=== PATIENT | female | born 2000 | race Caucasian/White ===

== ENCOUNTER 2021-07-31 13:54 | Emergency (ER) | payer BC, MEDICAID, SELFPAY ==
--- NOTE | ~2021-07-31 | XR_ITS ---
EXAMINATION: XR chest 1V portable DATE: 07/31/2021 15:47 INDICATION: Weakness. TECHNIQUE: A single frontal view of the chest was obtained. COMPARISON: None. FINDINGS: The chest demonstrates clear lungs without pneumonia, pleural effusion, or pneumothorax. Th e heart size is normal. IMPRESSION: 1. No acute cardiopulmonary disease. Reviewed, dictated and finalized at location A.
[2021-07-31 14:03] VITALS: BP 115/58; PULSE 82; RESP 18; TEMP 36.6; O2SAT 100
[2021-07-31 14:25] VITALS: BP 115/65; PULSE 78; RESP 18; O2SAT 100
--- NOTE | 2021-07-31 15:35 | ECG_ITS ---
Measurements Intervals [place] Rate: 68 P: 72 WY: 177 QRS: 86 QRSD: 94 T: 64 QT: 391 QTc: 418 Interpretive Statements SINUS RHYTHM INCOMPLETE RIGHT BUNDLE BRANCH BLOCK BORDERLINE ECG Electronically Signed On 07-31-2021 16:06:07 CDT by Davonte Ferrara D.O.
[2021-07-31 16:27] LABS: Basophils Percent Auto 0.4 % (0.2-1.2); Eosinophils Absolute Auto 0.1 K/mm3 (0-0.3); Eosinophils Percent Auto 1.3 % (0-4.4); Hemoglobin 11.5 g/dL (12.0-15.0); Immature Granulocyte Absolute 0.01 K/mm3 (0.00-0.031); Immature Granulocyte Percent A 0.2 % (0-0.5); Lymphocytes Percent Auto 35.4 % (18.3-44.2); Mean Corpuscular HGB Conc 32.9 g/dl (32-36); Mean Corpuscular Hemoglobin 27.1 pg (26-34); Mean Corpuscular Volume 82.5 fl (80-100); Mean Platelet Volume 10.3 fl (7.4-10.4); Monocytes Absolute Auto 0.5 K/mm3 (0.1-0.6); Monocytes Percent Auto 8.4 % (2.6-8.5); Neutrophils Absolute Auto 2.9 K/mm3 (1.3-6.7); Neutrophils Percent Auto 54.3 % (45.5-73.1); Platelet Count Result 346 k/mm3 (150-375); Red Blood Count 4.24 M/mm3 (4.2-5.4); Red Cell Distribution Width 13.9 % (11.5-14.5); White Blood Count 5.4 K/mm3 (4.5-10.0)
[2021-07-31 16:29] LABS: Add Urine Microscopic? YES; Appearance Urine Clear (Clear); Bilirubin Urine Negative (Negative); Blood Urine Negative (Negative); Color Urine Yellow (Yellow); Glucose Urine UA Negative (Negative); Ketones Urine Negative (Negative); Leukocyte Esterase Ur Trace LEU/UL (Negative); Nitrate Urine Negative (Negative); Protein Urine Negative (Negative); Specific Grav Ur 1.015 (1.001-1.035); Urobilinogen Urine 0.2 mg/dL (<2.0); pH Urine 6.5 (5.0-9.0)
[2021-07-31 16:37] LABS: Alanine Aminotransferase 15 U/L (6-35); Albumin Level 4.5 g/dL (3.5-5.1); Alkaline Phosphatase 47 U/L (38-126); Anion Gap 6 mmol/L (8-16); Aspartate Amino Transferase 28 U/L (14-36); Bilirubin,Total 0.3 mg/dL (0.2-1.3); Blood Urea Nitrogen 16 mg/dL (7-17); Calcium 9.3 mg/dL (8.4-10.2); Carbon Dioxide 29 mmol/L (22-30); Chloride 102 mmol/L (98-107); Estimated CRCL calculation 107 ml/min; Estimated Glomerular Filt Rate > 60; Glucose 69 mg/dL (65-110); Magnesium 1.8 mg/dL (1.6-2.3); Potassium 4.1 mmol/L (3.4-5.0); Sodium 137 mmol/L (137-145)
[2021-07-31 16:48] LABS: Bacteria Urine Trace /hpf; Mucus Urine Rare /lpf; RBC Urine 0-2 /hpf (0-2); Squamous Epithelial Cell Urine Many /hpf (Few); WBC Urine 0-3 /hpf
[2021-07-31 16:49] VITALS: BP 105/50; BP 97/60; PULSE 71
[2021-07-31 16:50] VITALS: BP 112/56
--- NOTE | 2021-07-31 16:53 | ED.WEAKNESS ---
HPI - Weakness General Chief complaint: Weakness Stated complaint: low blood pressure Time Seen by Provider: 07/31/21 16:22 Source: patient Mode of arrival: ambulatory History of Present Illness HPI Narrative: 21-year-old female was in physical therapy today when she had a short episode of dizziness. Per patient therapy says her blood pressure was either low or high and instructed her to come to the ER. Patient states she got dizzy when the TENS unit was hooked up to her right leg and blames the dizziness on that. Patient alert and oriented without complaints of dizziness upon arrival. Patient does appear pale and states that yes she is paler than normal. Patient without any other complaints including no shortness of breath, no chest pain. She denies any recent illness, or sick contacts, or decrease in oral intake. Related Data Home Medications Medication Instructions Recorded Confirmed amitriptyline 25 mg tablet 25 mg PO QHS 06/03/21 06/13/21 Allergies Allergy/AdvReac Type Severity Reaction Status Date / Time Penicillins Allergy Intermediate Rash Verified 07/31/21 14:27 Review of Systems Review of Systems: CONSTITUTIONAL: Denies fever, chills, or sweats. EYES: Denies visual changes, redness, or discharge. ENT: Denies rhinorrhea, congestion, sore throat, or otalgia. CARDIOVASCULAR: Denies chest pain, palpitations, or edema. RESPIRATORY: Denies cough or dyspnea. GASTROINTESTINAL: Denies abdominal pain, nausea, vomiting, or diarrhea. GENITOURINARY: Denies dysuria or hematuria. SKIN: Denies rash or itching. MUSCULOSKELETAL: Denies back pain, joint pain, or myalgia. NEUROLOGIC: Dizziness. Denies headache, numbness, or weakness. PSYCHIATRIC: Denies anxiety or depression. COUNTS INCLUDE 234 BEDS AT THE [facility] Past Medical History Medical History Depression Family History Family History Father ADHD Mother Anemia Grandparent ADHD Social History Social History Smoking status: Former smoker Tobacco type: e-cigarettes/vaping Second hand tobacco smoke exposure: Yes Alcohol intake: current Substance use type: marijuana Gender identity (if verbalized by the patient): Female Sexual Orientation (if Verbalized by the Patient): Straight or Heterosexual Spiritual care concerns: No Agree to blood products: Yes Exam Narrative: GENERAL: Well-appearing, well-nourished, and in no acute distress. Patient does appear pale. HEAD: Normocephalic, atraumatic. EYES: PERRLA and EOMI. NECK: Supple. No adenopathy or masses. No carotid bruits or JVD CHEST: Clear to auscultation. No respiratory distress. No wheezes rales or rhonchi HEART: Regular rate and rhythm. No murmur heard. Normal peripheral pulses. ABDOMEN: Soft, nontender, nondistended, normal active bowel sounds. EXTREMITIES: Normal range of motion. No edema. SKIN: Warm, dry, no rash. NEURO: No focal deficits. Alert and oriented x3. PSYCH: Normal mood and affect. Course Course Emergency Course: Discussed labs with patient. Orthostatics negative. Patient ready to be discharged home wants to go home. Vital Signs Vital signs: Vital Signs Temperature 36.6 C 07/31/21 14:03 Pulse Rate 82 07/31/21 14:03 Respiratory Rate 18 07/31/21 14:03 Blood Pressure 115/58 L 07/31/21 14:03 Pulse Oximetry 100 07/31/21 14:03 Temperature 36.6 C 07/31/21 14:03 Pulse Rate 71 07/31/21 16:49 Respiratory Rate 18 07/31/21 14:25 Blood Pressure 112/56 L 07/31/21 16:50 Pulse Oximetry 100 07/31/21 14:25 MDM - Weakness MDM Narrative Medical decision making narrative: 21-year-old female HPI as noted. Patient with a short course of dizziness during PT. Hemoglobin 11.5, WBCs 5.4, sodium 137, potassium 4.1, GFR greater than 60, and orthostatics negative. Patient was on a TENS unit with dizziness started. Susp
== END 2021-07-31 17:33 | disposition home or self-care (01) ==
PROVIDERS: General Practice; Emergency Provider Nurse Practitioner Family
DX: R42 Dizziness and giddiness (principal); F32.A Depression, unspecified; Z87.891 Personal history of nicotine dependence; I45.10 Unspecified right bundle-branch block
CPT/HCPCS: 36415; 71045; 80053; 81001; 81025; 83605; 83735; 85025; 93005; 99283

== ENCOUNTER 2021-08-05 15:45 | Outpatient (RCR) | payer BC, MEDICAID, SELFPAY ==
--- NOTE | 2021-05-27 14:46 | OTOPEVAL ---
OCCUPATIONAL THERAPY INITIAL EVALUATION REPORT 05/27/21 Thank you for referring Brenna Gonsalez to [facility].? The patient is scheduled to be seen for occupational therapy? 2x/week for 4 weeks. Please review, sign, date and return this plan of care JA. I agree with and certify that the following plan of care is medically necessary. Referring Physician Date Referring Provider: Yvan Hall MD *OT Outpatient Evaluation Start: 05/27/21 13:52 Outpatient Past Medical History Neurological History Hx Other Neurological Disorders Yes: Traumatic Brain Injury Cardiovascular History Hx Cardiac Disorders No Significant History Respiratory History Hx Respiratory Disorders No Significant History Gastrointestinal History Hx Gastrointestinal Disorders No Significant History Genitourinary History Hx Genitourinary Disorders No Significant History Musculoskeletal History Hx Musculoskeletal Disorders No Significant History Hematological History Hx Hematological Disorders No Significant History Endocrine History Hx Endocrine Disorders No Significant History HEENT History Hx HEENT Disorders No Significant History Integumentary History Hx Skin Disorders No Significant History Reproductive History Hx Reproductive Disorders No Significant History Psychosocial History Hx Psychiatric Disorders No Significant History Anesthesia History Hx Anesthesia Reactions No Significant History Evaluation Information Problem Diagnosis Traumatic Brain Injury Cause Reports overdose Subjective Information She has a history of drug Query Text:As Reported By Patient/ abuse who overdosed and was Family found unresponsive at her grandmother's house. She was admitted to the hospital in late Mar 2021 where she was intubated and transferred to the ICU. After a complicated hospital stay (~28 days) she was admitted to [facility] in late Apr 2021. She is unsure how long she was there. She discharged back to her grandmother's house and is now referred to outpatient OT/PT/ST. Prior Level of Function Activity Level (Last 3 Months) Hand Dominance Right Activity of Daily Living Ability Needs Some Help Indoor/Home Mobility Needs Some Help Community Mobility Needs Some Help Stairs Ability Needs Some Help Functional Cognition (Planning, Shopping Needs Some Help , Taking Medications) Home Settin
--- NOTE | 2021-05-27 16:25 | STOPEVAL ---
Thank you for referring Brenna Gonsalez to [facility].? The patient is scheduled to be seen for therapy? 0x/week for 1 weeks then 2x/week for 2 weeks. Please review, sign, date and return this plan of care JA. I agree with and certify that the following plan of care is medically necessary. Referring Physician Date Referring Provider: Yvan Hall Therapy Assessment Status Assessment Status Assessment Status Evaluation Outpatient Past Medical History Neurological History Hx Other Neurological Disorders Yes: Traumatic Brain Injury Cardiovascular History Hx Cardiac Disorders No Significant History Respiratory History Hx Respiratory Disorders No Significant History Gastrointestinal History Hx Gastrointestinal Disorders No Significant History Genitourinary History Hx Genitourinary Disorders No Significant History Musculoskeletal History Hx Musculoskeletal Disorders No Significant History Hematological History Hx Hematological Disorders No Significant History Endocrine History Hx Endocrine Disorders No Significant History HEENT History Hx HEENT Disorders No Significant History Integumentary History Hx Skin Disorders No Significant History Reproductive History Hx Reproductive Disorders No Significant History Psychosocial History Hx Psychiatric Disorders No Significant History Anesthesia History Hx Anesthesia Reactions No Significant History Evaluation Information Problem Diagnosis Traumatic Brain Injury Cause Reports overdose Subjective Information Patient reports she overdosed Query Text:As Reported By Patient/ and went into a coma for about Family a month, then, maybe 15 days, maybe 10. Reports she was in [place] and then [facility]. Pain Assessment Timing of Pain Assessment Timing of Pain Assessment Assessment Pain Scale Pain Scale Used Numeric (1 - 10) Pain Score Additional Pain Score Comments Complains of severe pain in her right foot due to nerve damage. 12/21. States nothing helps with the pain. Interventions Used Interventions Used By Clinicians None Pain Relief Interventions Used By None Patient Other Alleviating Interventions Says nothing she does improves the pain in her foot. Cognitive Evaluation Orientation/Memory Assessment Immediate Memory 72 Query Text:% Accuracy Recent Memory 90 Query Text:% Accuracy Remote Memory 80 Query Text:% Accuracy Prospective Memory 100 Query Text:% Accuracy Temporal Orientation
--- NOTE | 2021-05-27 17:00 | PTOPEVAL ---
PHYSICAL THERAPY INITIAL EVALUATION. Thank you for referring Brenna Gonsalez to [facility].? The patient is scheduled to be seen for therapy?2x/week for 4 weeks. Please review, sign, date and return this plan of care JA. I agree with and certify that the following plan of care is medically necessary. Referring Physician Date Attending Provider: PHYSICIAN NOT ON STAFF Referring Provider: Yvan Hall *PT Outpatient Evaluation Start: 05/27/21 Evaluation Information Diagnosis Traumatic Brain Injury Onset 04/10/21 Subjective Information Per chart and patients family, Query Text:As Reported By Patient/ she has a history of drug Family abuse who overdosed and was found unresponsive at her grandmother's house. She was admitted to [facility] where she was intubated and transferred to the ICU. After a complicated hospital stay (~28 days) she was admitted to [facility] on . She is unsure how long she was there. She discharged back to her grandmother's house ~05/20/21 and is now referred to outpatient OT/PT/ ST. Prior Level of Function Activity Level (Last 3 Months) Hand Dominance Right Activity of Daily Living Ability Needs Some Help Indoor/Home Mobility Needs Some Help Community Mobility Needs Some Help Stairs Ability Needs Some Help Functional Cognition (Planning, Shopping Needs Some Help , Taking Medications) Home Setting Home Type House Environmental Barriers Ramp,Stairs, Threshold Living Situation With Relatives [employer] Responsibilities Comment Per pt, she has a nurse that comes every day and helps with bathing and dressing. Pain Assessment Right Ankle(s) Reported Pain Level 0 Pain Behaviors Grimacing,Guarding,Limping, Teary Eyed/Crying Additional Pain Comments it hurts a lot . Pt did not report 0/10, unable to report Pain Score Pain Score 0: Self Report Additional Pain Score Comments Pt states she has nerve burn on the top of her foot Lower Extremity Range of Motion General Lower Extremity Range of Motion WFL/Left Knee Range of Motion Right Knee Extension Range of Motion - A
--- NOTE | 2021-06-04 14:56 | PCPTNOTE ---
Patient did not show up for scheduled appointment this date. Called & had to leave a message
--- NOTE | 2021-06-10 11:32 | PCSTNOTE ---
Patient not seen week of 06/01 due to scheduling conflict.
--- NOTE | 2021-06-15 14:17 | PCSTNOTE ---
The patient treatment was not able to be completed on 06/15/21 due to patient expressing disinterest in Speech Therapy tasks, denying any difficulty with recall and math, and expressing, I don't care when asked if she would like to improve in these areas. She is being discharged this date with goals not achieved.
--- NOTE | 2021-06-15 16:35 | STOPEVAL ---
Thank you for referring Brenna Gonsalez to [facility].? I understand patient is discharged from Speech Therapy due to disinterest and noncompliance. Referring Physician Date Referring Provider: Yvan Hall Therapy Assessment Status Assessment Status Assessment Status Discharge - Pt Not Present Outpatient Past Medical History Neurological History Hx Other Neurological Disorders Yes: Traumatic Brain Injury SPEECH THERAPY DISCHARGE SUMMARY Patient has been seen for a ST evaluation and two treatment sessions addressing cognitive-linguistic skills. Possible discharge from Speech Therapy sessions was discussed with patient last visit (second treatment session) as patient is in denial of deficits at least in the areas of recall of short story information and functional math. Last session patient was asked to keep track herself of the responses she gave when asked questions concerning short stories; her responses were relatively good however her ability to accurately keep track of her correct and incorrect responses was poor. Given functional math in the form of simple word problems, the patient had difficulty setting up equations and then using her calculator to determine the correct response and therefore initially, she responded incorrectly to four of the first five questions. Her accuracies improved after the first five responses were reviewed with patient, then able to respond correctly 3/3 times. Today, the patient entered the therapy session stating she thought Speech Therapy had been discharged; she continued to insist that she did poorly on the stories because she did not
--- NOTE | 2021-06-24 11:34 | PCPTNOTE ---
Patient called & cancelled scheduled appointment this date due to inclement weather. She has been rescheduled.
--- NOTE | 2021-07-06 14:34 | OTOPEVAL ---
OCCUPATIONAL THERAPY RE-EVALUATION REPORT AND DISCHARGE NOTE 07/06/21 Brenna presents today for OT re-evaluation following 6 treatment sessions focused on UE strengthening and functional coordination. At this time the patient demonstrates functional UE strength and coordination for ADLs and reports no functional limitations. Discharging today with patient independent with strengthening HEP. Thank you for referring Brenna Gonsalez to [facility].? Please review, sign, date and return this D/C Note JA. I agree with and certify that the following plan of care is medically necessary. Referring Physician Date Referring Provider: Yvan Hall MD *OT Outpatient Re-Evaluation Start: 05/27/21 13:52 Diagnosis Traumatic Brain Injury Onset 04/10/21 Cause Overdose Subjective Information Patient has participated in 6 Query Text:As Reported By Patient/ outpatient OT sessions focused Family on UE functional strengthening and coordination . She reports her upper body feels stronger and that her writing is better. She reports no functional limitations at this time. Pain Assessment Timing of Pain Assessment Timing of Pain Assessment Re-assessment Pain Scale Pain Scale Used Numeric (1 - 10) Self Report Pain Assessment Right Ankle(s) Reported Pain Level 5 Pain Description Aching,Soreness Pain Score Pain Score 5: Self Report Interventions Used Interventions Used By Clinicians Rest Upper Extremity Range of Motion General Upper Extremity Range of Motion Reason Not Measured WNL/Left,WNL/Right Upper Extremity Muscle Strength Testing Scapular/Shoulder Left Shoulder Flexion Strength 5 Normal Shoulder Extension Strength 5 Normal Shoulder Abduction Strength 5 Normal Shoulder Adduction Strength 5 Normal Right Shoulder Flexion Strength 5 Normal Shoulder Extension Strength 5 Normal Shoulder Abduction Strength 5 Normal Shoulder Adduction Strength 5 Normal Elbow/Forearm Bilateral Elbow Flexion Strength 5 Normal Elbow Extension Strength 4 Good Wrist Strength Bilateral Wrist Flexion Strength 4+ Good + Wrist Extension Strength 4+ Good + Hand Certified Medical Asst/Pinch Strength Assessment Hand Left Certified Medical Asst Strength (lbs) 54 Hand Certified Medical Asst/Pinch Strength Comments Improved from 46 lbs. Norm: 58 lbs. Right Certified Medical Asst Strength (lbs) 48 Hand Certified Medical Asst/Pinch Strength Comments Improved from 27 lbs. Norm: 64 lbs. 9-Hole Peg Hand Test Hand Left Scoring Time (seconds) 28 Interpretation Minimally Below Normal Comments
--- NOTE | 2021-07-06 15:30 | PTOPEVAL ---
PHYSICAL THERAPY PROGRESS REPORT. Thank you for referring Brenna Gonsalez to [facility].? The patient is scheduled to continue therapy?2x/week for 4 weeks. Please review, sign, date and return this plan of care JA. I agree with and certify that the following plan of care is medically necessary. Referring Physician Date Referring Provider: Yvan Hall Evaluation Information Diagnosis Traumatic Brain Injury Onset 04/10/21 Subjective Information Pt states she is doing better. Query Text:As Reported By Patient/ She states she has not been Family wearing her brace or using her walker when walking around her home. She states she continues to have the most difficulty with walking. Pain Assessment Right Ankle(s) Reported Pain Level 6 Pain Score Pain Score 6: Self Report Lower Extremity Muscle Strength Testing Gross Lower Extremity Strength R ankle 0-1/5 in all directions R knee 4+/5 R hip flexion 4+/5 R hip extension 3/5 L hip extension 4/5 R glute med 3/5 L glute med 4-/5 Balance Assessment Price Balance Assessment PRICE Balance Evaluation Total Score 44/56 Comments L tandem: 18s R tandem: 2s L single leg stance: 18s R single leg stance: 3s Dynamic Gait Index Total Score () Gait Assessment Ambulation Assistive Devices None Orthotic/Prosthetic Devices Right Lower Extremity Orthosis Additional Ambulation Comments SBA without AD Gait Pattern Antalgic Gait Gait Pattern Observed Decreased Stride Length - Left ,Decreased Weight Shift - Right,Excessive Knee Flex - Right,No Heel Strike - Right, Uneven Henny Other Gait Observations Decreased weight shift to the R, decreased stance time on the R, decreased stride length on the L. 2 Minute Walk Total Distance Walked (feet) 315 2 Minute Walk Gait Speed Score (feet/sec 2.62 2 Minute Walk Test Comments Initially: 125ft with wheeled walker 07/06/21: 315 ft without AD Stair Climbing Assessment Stair Climbing Assistive Devices Railings Technique Single Steps Stair Climbing Comments
--- NOTE | 2021-07-08 12:57 | PCPTNOTE ---
Patient did not show up for scheduled appointment this date. Called and had to leave a message.
--- NOTE | 2021-07-22 13:26 | PCPTNOTE ---
Patient did not show up for scheduled appointment this date. Called & left of message.
--- NOTE | 2021-08-05 16:24 | PTOPEVAL ---
PHYSICAL THERAPY PROGRESS REPORT AND DISCHARGE SUMMARY. Thank you for referring Brenna Gonsalez to [facility].? The patient is would like to be discharged from skilled physical therapy services at this time. Please review, sign, date and return this plan of care JA. I agree with and certify that the following plan of care is medically necessary. Referring Physician Date Attending Provider: PHYSICIAN NOT ON STAFF Referring Provider: Yvan Hall *PT Outpatient Evaluation Start: 05/27/21 Evaluation Information Diagnosis Traumatic Brain Injury Onset 04/10/21 Subjective Information Pt states she feels like she Query Text:As Reported By Patient/ has returned to almost Family everything she was doing before. She states the only thing the cannot do is run. Pain Assessment Pain Score 0: Self Report Lower Extremity Range of Motion General Lower Extremity Range of Motion WFL/Left,WFL/Right Knee Range of Motion Right Knee Extension Range of Motion - Active 0 Ankle/Foot Range of Motion Right Ankle Dorsiflexion With Knee Extension -38 active Ankle Dorsiflexion With Knee Extension -15 passive Ankle Eversion Range of Motion - Active 0 Ankle Eversion Range of Motion - Passive 20 Ankle Inversion Range of Motion - Active 40 Ankle Inversion Range of Motion -passive 45 Lower Extremity Muscle Strength Testing Gross Lower Extremity Strength R ankle 0-1/5 in all directions L LE grossly 5/5 R LE grossly 4+/5 Sergio hip extension 4/5 Sergio glute med 4/5 Balance Assessment Price Balance Assessment PRICE Balance Evaluation Total Score 49/56 Comments L tandem: 25s R tandem: 15s L single leg stance: 27s R single leg stance: 3s Dynamic Gait Index Total Score () Gait Assessment Orthotic/Prosthetic Devices Right Lower Extremity Orthosis Other Gait Observations Decreased weight shift to the R, decreased stance time on the R, decreased stride length on the L. 2 Minute Walk Total Distance Walked (feet) 380 2 Minute Walk Gait Speed Score (feet/ 3.16 2 Minute Walk Test Comments Initially: 125ft with wheeled walker 07/06/21: 315 ft with AFO 08/05/21: 380ft with AFO Stair Climbing Assessment Stair Climbing Assistive Devices Railings Technique Alternating Steps Stair Climbing Direction Both Up and
== END 2021-08-06 12:17 | disposition home or self-care (01) ==
LOC: ANHPT 15:45
PROVIDERS: PCP Family Medicine
DX: M21.371 Foot drop, right foot (principal); I42.8 Other cardiomyopathies; M62.81 Muscle weakness (generalized); G93.1 Anoxic brain damage, not elsewhere classified; Z86.74 Personal history of sudden cardiac arrest
CPT/HCPCS: 92507; 92523; 97110; 97112; 97116; 97162; 97165; 97530

== ENCOUNTER 2022-11-01 07:21 | Outpatient (CLI) | payer BC, MEDICAID, SELFPAY ==
--- NOTE | ~2022-11-01 | MR_ITS ---
EXAMINATION: MR brain/brain stem wo con DATE: 11/01/2022 08:05 INDICATION: Anoxic brain damage, not elsewhere classified. TECHNIQUE: Magnetic resonance imaging (MRI) of the brain and brainstem was performed without intraven ous contrast. COMPARISON: None. FINDINGS: There is a focus of increased T2-weighted signal intensity in the left parietal deep white matter, which is normal as an isolated finding. There is no intracranial hemorrhage, acute infarction , or abnormal intracranial mass lesion. The ventricles are normal in size. The orbits are normal. The re is mild mucosal thickening in right maxillary sinus. The mastoid air cells are normal. The interna l auditory canals and inner and middle ears are normal. IMPRESSION: 1. Normal brain. Reviewed, dictated and finalized at location A. IMPRESSION: 1. Normal brain.
== END 2022-11-01 07:22 | disposition home or self-care (01) ==
PROVIDERS: PCP Family Medicine; Visit Provider Nurse Practitioner Family
DX: G93.1 Anoxic brain damage, not elsewhere classified (principal); H91.90 Unspecified hearing loss, unspecified ear
CPT/HCPCS: 70551